=== PATIENT | female | born 1975 | race Caucasian/White ===

== ENCOUNTER → 2016-10-26 | Outpatient (CLI) | payer OTHER ==
--- NOTE | 2016-10-26 21:03 | US ---
EXAMINATION TYPE: US thyroid st tissue head/neck DATE OF EXAM: 10/26/2016 COMPARISON: NONE CLINICAL HISTORY: HYPOTHYROIDISM E03.9. Patient states she feels like there is a lump in her throat GLAND SIZE: Right Lobe: 4.8 x 1.4 x 1.6 cm Overall Parenchyma: heterogenous Left Lobe: 3.9 x 1.4 x 1.5 cm Overall Parenchyma: heterogeneous Isthmus Thickness: 0.2 cm NODULES RIGHT: # of nodules measured on right: 0 LEFT: # of nodules measured on left: 0 ISTHMUS: # of nodules measured in the isthmus: 0 Very heterogenous echotexture bilaterally. Second technologist Tatum Perez came in to look on right side, no solid or cystic nodules visualized bilaterally. Bilateral neck scanned, no evidence of lymp hadenopathy. Thyroid gland is overall normal in size but heterogeneous in echotexture. No definitive solid or cyst ic nodule is identified bilaterally. IMPRESSION: Heterogeneous normal-sized thyroid without discrete nodule.
--- NOTE | 2016-10-27 11:55 | ECHOF ---
Referral Reason:E03.9 HYPOTHROIDISM Z82.49 FAM HX MITROVALVE MEASUREMENTS -------- HEIGHT: 162.6 cm WEIGHT: 49.0 kg BP: 114/57 RVIDd: 2.5 cm (< 3.3) IVSd: 0.9 cm (0.6 - 1.1) LVIDd: 4.3 cm (3.9 - 5.3) LVPWd: 0.9 cm (0.6 - 1.1) IVSs: 1.1 cm LVIDs: 3.1 cm LVPWs: 1.3 cm LAESV Index (A-L): 23.54 ml/m Ao Diam: 2.7 cm (2.0 - 3.7) AV Cusp: 1.9 cm (1.5 - 2.6) LA Diam: 2.6 cm (2.7 - 3.8) MV EXCURSION: 11.453 mm (> 18.000) MV EF SLOPE: 111 mm/s (70 - 150) EPSS: 1.2 cm MV E Hernan: 0.85 m/s MV DecT: 209 ms MV A Hernan: 0.70 m/s MV E/A Ratio: 1.22 RAP: 5.00 mmHg RVSP: 17.74 mmHg FINDINGS -------- Sinus rhythm. This was a technically good study. Overall left ventricular systolic function is normal with, an EF between 55 - 60 %. The right ventricle is normal in size and function. Normal LA size by volume 22+/-6 ml/m2. The right atrium is normal in size. Aortic valve is trileaflet and is mildly thickened. There is no evidence of aortic regurgitation. There is no evidence of aortic stenosis. The mitral valve leaflets are mildly thickened. There is trace mitral regurgitation. Trace tricuspid regurgitation present. There is no evidence of pulmonary hypertension. The right ventricular systolic pressure, as measured by Doppler, is 17.74mmHg. The pulmonic valve is normal. The aortic root size is normal. The inferior vena cava is mildly dilated. The pericardium is normal. There is no pericardial effusion. CONCLUSIONS -------- 1. Sinus rhythm. 2. The right ventricular systolic pressure, as measured by Doppler, is 17.74mmHg. 3. The aortic root size is normal. 4. The inferior vena cava is mildly dilated. 5. There is no pericardial effusion. 6. This was a technically good study. 7. Overall left ventricular systolic function is normal with, an EF between 55 - 60 %. 8. Normal LA size by volume 22+/-6 ml/m2. 9. Aortic valve is trileaflet and is mildly thickened. 10. The mitral valve leaflets are mildly thickened. 11. There is trace mitral regurgitation. 12. Trace tricuspid regurgitation present. 13. There is no evidence of pulmonary hypertension. BANDAGE WRAPPING MACHINE OPERATOR: Arely Montanez RDCS
== END | disposition home or self-care (01) ==
LOC: RADECHMAIN 16:21
PROVIDERS: ATTEND Family Medicine
DX: E03.9 Hypothyroidism, unspecified (principal); I08.3 Combined rheumatic disorders of mitral, aortic and tricuspid valves; Z82.49 Family history of ischemic heart disease and other diseases of the circulatory system; Z88.0 Allergy status to penicillin; Z88.1 Allergy status to other antibiotic agents; Z88.6 Allergy status to analgesic agent
CPT/HCPCS: 76536; 93306

== ENCOUNTER → 2017-11-30 | Outpatient (CLI) | payer MEDICAID, OTHER ==
--- NOTE | 2017-11-30 11:48 | EST ---
EXERCISE STRESS AGE: 42 SEX: F HT: 5'4' WT: 110 PROTOCOL: Jean Stress Test STAGE: II DURATION OF EXERCISE: 8:00 HEART RATE REST: 71 BLOOD PRESSURE REST: 112/80 MAXIMUM HEART RATE ACHIEVED: 153 MAXIMUM BLOOD PRESSURE: 134/63 85% MPHR: 150 100% MPHR: 176 METS: 9.7 INDICATIONS: Chest pain. CLINICAL INFORMATION: Patient was exercised for a total period of 8 minutes. Peak heart rate of 153 was achieved. Maximum blood pressure of 134/63 mmHg was noted.. Resting EKG shows normal sinus rhythm with normal OK interval and QRS duration and normal ST-T waves. No ST- segment depression suggestive of ischemia was noted. Patient did not complain of any chest pain during the test. FINAL IMPRESSION: 1. This exercise test is not suggestive of ischemia. 2. Patient's exercise tolerance is average. 3. No dysrhythmias are noted. MMODL / IJN: [id number] /
== END | disposition home or self-care (01) ==
LOC: RADNMMAIN 10:24
PROVIDERS: ATTEND Family Medicine
DX: R07.89 Other chest pain (principal); Z88.1 Allergy status to other antibiotic agents; Z88.5 Allergy status to narcotic agent; Z88.8 Allergy status to other drugs, medicaments and biological substances
CPT/HCPCS: 93017

== ENCOUNTER 2018-08-14 01:10 | Emergency (ER) | payer MEDICAID ==
[2018-08-14] MEDS ORDERED: SODIUM CHLORIDE 0.9% 1,000 ML IV STA (01:39)
[2018-08-14 01:40] LABS: Glucose,Whole Blood 96 mg/dL (75-99)
[2018-08-14] MEDS ORDERED: MECLIZINE 12.5 MG TAB PO STA (01:41)
--- NOTE | 2018-08-14 01:48 | ED ---
General Adult HPI - General Chief complaint: Dizziness Stated complaint: Dizziness, palpitations Time Seen by Provider: 08/14/18 01:28 Source: patient Mode of arrival: wheelchair Limitations: no limitations - History of Present Illness Initial comments: 42-year-old female patient presents to the emergency department today for evaluation of dizziness, racing heart, chest discomfort, and left jaw pain. Patient states this started around 10 PM while working. Patient states that dizziness worsens whenever she stands up or turns her head to the side. Patient states when she stands up she feels like her heart races. States she is having mild discomfort over her left chest, but states this is common for her. Denies any radiation of the pain through to her back. She denies any blurred or double vision. States that she feels like her tongue is swollen and tingly. She states she did eat dinner as normal tonight. Denies any new medications or substances. States that she does have history of hypothyroid and takes the lowest dose [place] Thyroid. She denies any numbness, tingling, or weakness to the extremities. She denies any nausea or vomiting. She denies any street drug use or use of stimulants. Patient denies any recent rash, fever, chills, shortness breath, abdominal pain, diarrhea, constipation, back pain, hematuria, dysuria, urinary urgency, urinary frequency, headache, visual changes, or any other complaints. - Related Data Previous Rx's Medication Instructions Recorded Meclizine HCl 25 mg PO BID #14 tablet 08/14/18 Allergies Allergy/AdvReac Type Severity Reaction Status Date / Time levofloxacin [From Levaquin] Allergy Swelling Verified 08/14/18 01:21 metronidazole [From Flagyl] Allergy Anaphylaxis Verified 08/14/18 01:21 milk AdvReac Abdominal Verified 08/14/18 01:21 Pain Review of Systems ROS Statement: Those systems with pertinent positive or pertinent negative responses have been documented in the HPI. ROS Other: All systems not noted in ROS Statement are negative. Past Medical History Past Medical History: Thyroid Disorder History of Any Multi-Drug Resistant Organisms: None Reported Past Surgical History: Orthopedic Surgery Additional Past Surgical History / Comment(s): right knee, Past Psychological History: No Psychological Hx Reported Smoking Status: Current every day smoker Past Alcohol Use History: None Reported Past Drug Use History: None Reported General Exam Limitations: no limitations General appearance: alert, in no apparent distress, other (Physical well- developed, well-nourished adult female patient in no acute distress. Vital signs upon presentation are temperature 97.9F, pulse 85, respirations 18, blood pressure 131/80, pulse ox 99% on room air.) Eye exam: Present: normal appearance, PERRL, EOMI. Absent: scleral icterus, conjunctival injection, nystagmus, periorbital swelling ENT exam: Present: normal exam, normal oropharynx, mucous membranes moist Neck exam: Present: normal inspection. Absent: tenderness, meningismus, lymphadenopathy Respiratory exam: Present: normal lung sounds bilaterally. Absent: respiratory distress, wheezes, rales, rhonchi, stridor Cardiovascular Exam: Present: regular rate, normal rhythm, normal heart sounds. Absent: systolic murmur, diastolic murmur, rubs, gallop, clicks GI/Abdominal exam: Present: soft, normal bowel sounds. Absent: distended, tend erness, guarding, rebound, rigid Neurological exam: Present: alert, oriented X3, CN II-XII intact, other (Strength in all 4 extremities is 5/5.) Psychiatric exam: Present: normal affect, normal mood Skin exam: Present: warm, dry, intact, normal color. Absent: rash Course Vital Signs 08/14/18 08/14/18 08/14/18 01:16 02:10 02:20 Temperature 97.9 F Pulse Rate 85 78 78 Respiratory 18 15 16 Rate Blood Pressure 131/80 115/72 108/73 O2 Sat by Pulse 99 Oximetry 08/14/18 08/14/18 08/14/18 02:50 03:10 03:20 Temperature Pulse Rate 74 78 76 Respiratory 15 16 16 Rate Blood Pressure 106/73 109/73 107/66 O2 Sat by Pulse Oximetry EKG Findings - EKG Comments: EKG Findings:: EKG obtained at shows normal sinus rhythm with a ventricular rate of 74, OK interval 142, QRS Duration 102, QT 388, QTC 4:30. No evidence of ST elevation or depression. Medical Decision Making - Medical Decision Making 42-year-old female patient presented to the emergency department today for evaluation of dizziness, racing heart, and tingling in her tongue. Physical examination is unremarkable. She is neurologically intact with no focal deficits. EKG shows normal sinus rhythm. Labs reviewed and shows normal troponin. Normal electrolytes. Patient did have elevated TSH, she does have history of hypothyroid, states she has been taking half of the tablet of her medication. We did administer IV fluids. Gave meclizine. She does have improvement of symptoms in the emergency department. She'll be discharged home at this time to follow-up with her primary care physician. We did discuss possibility of a Holter monitor. She is instructed to discuss dosage of her thyroid medication with her physician. Return parameters were discussed in detail. She verbalizes understanding and agrees with this plan. - Lab Data Result diagrams: 08/14/18 01:37 08/14/18 01:37 Lab Results 08/14/18 08/14/18 08/14/18 Range/Units 01:37 01:37 01:37 WBC 8.6 (3.8-10.6) k/uL RBC 4.23 (3.80-5.40) m/uL Hgb 13.0 (11.4-16.0) gm/dL Hct 38.2 (34.0-46.0) % MCV 90.4 (80.0-100.0) fL MCH 30.8 (25.0-35.0) pg MCHC 34.0 (31.0-37.0) g/dL RDW 13.5 (11.5-15.5) % Plt Count 175 (150-450) k/uL Neutrophils % 57 % Lymphocytes % 34 % Monocytes % 5 % Eosinophils % 1 % Basophils % 1 % Neutrophils # 4.9 (1.3-7.7) k/uL Lymphocytes # 2.9 (1.0-4.8) k/uL Monocytes # 0.5 (0-1.0) k/uL Eosinophils # 0.1 (0-0.7) k/uL Basophils # 0.1 (0-0.2) k/uL PT 10.1 (9.0-12.0) sec INR 0.9 (<1.2) APTT 25.5 (22.0-30.0) sec Sodium 136 L (137-145) mmol/L Potassium 4.0 (3.5-5.1) mmol/L Chloride 105 (98-107) mmol/L Carbon Dioxide 22 (22-30) mmol/L Anion Gap 9 mmol/L BUN 20 H (7-17) mg/dL Creatinine 0.73 (0.52-1.04) mg/dL Est GFR (CKD-EPI)AfAm >90 (>60 ml/min/1.73 sqM) Est GFR (CKD-EPI)NonAf >90 (>60 ml/min/1.73 sqM) Glucose 95 (74-99) mg/dL POC Glucose (mg/dL) (75-99) mg/dL POC Glu Exchange Teller ID Calcium 9.4 (8.4-10.2) mg/dL Magnesium 2.1 (1.6-2.3) mg/dL Total Bilirubin 0.3 (0.2-1.3) mg/dL AST 29 (14-36) U/L ALT 16 (9-52) U/L Alkaline Phosphatase 63 (38-126) U/L Troponin I (0.000-0.034) ng/mL Total Protein 7.1 (6.3-8.2) g/dL Albumin 4.6 (3.5-5.0) g/dL TSH 5.530 H (0.465-4.680) mIU/L Urine Color Urine Appearance (Clear) Urine pH (5.0-8.0) Ur Specific [place] (1.001-1.035) Urine Protein (Negative) Urine Glucose (UA) (Negative) Urine Ketones (Negative) Urine Blood (Negative) Urine Nitrite (Negative) Urine Bilirubin (Negative) Urine Urobilinogen (<2.0) mg/dL Ur Leukocyte Esterase (Negative) Urine RBC (0-5) /hpf Ur Squamous Epith Cells (0-4) /hpf Urine Mucus (None) /hpf Urine Opiates Screen (NotDetected) Ur Oxycodone Screen (NotDetected) Urine Methadone Screen (NotDetected) Ur Propoxyphene Screen (NotDetected) Ur Barbiturates Screen (NotDetected) U Tricyclic Antidepress (NotDetected) Ur Phencyclidine Scrn (NotDetected) Ur Amphetamines Screen (NotDetected) U Methamphetamines Scrn (NotDetected) U Benzodiazepines Scrn (NotDetected) Urine Cocaine Screen (NotDetected) U Marijuana (THC) Screen (NotDetected) 05/29/19 05/29/19 05/29/19 Range/Units 01:37 01:37 01:39 WBC (3.8-10.6) k/uL RBC (3.80-5.40) m/uL Hgb (11.4-16.0) gm/dL Hct (34.0-46.0) % MCV (80.0-100.0) fL MCH (25.0-35.0) pg MCHC (31.0-37.0) g/dL RDW (11.5-15.5) % Plt Count (150-450) k/uL Neutrophils % % Lymphocytes % % Monocytes % % Eosinophils % % Basophils % % Neutrophils # (1.3-7.7) k/uL Lymphocytes # (1.0-4.8) k/uL Monocytes # (0-1.0) k/uL Eosinophils # (0-0.7) k/uL Basophils # (0-0.2) k/uL PT (9.0-12.0) sec INR (<1.2) APTT (22.0-30.0) sec Sodium (137-145) mmol/L Potassium (3.5-5.1) mmol/L Chloride (98-107) mmol/L Carbon Dioxide (22-30) mmol/L Anion Gap mmol/L BUN (7-17) mg/dL Creatinine (0.52-1.04) mg/dL Est GFR (CKD-EPI)AfAm (>60 ml/min/1.73 sqM) Est GFR (CKD-EPI)NonAf (>60 ml/min/1.73 sqM) Glucose (74-99) mg/dL POC Glucose (mg/dL) 96 (75-99) mg/dL POC Glu Exchange Teller ID Brown Christine Calcium (8.4-10.2) mg/dL Magnesium (1.6-2.3) mg/dL Total Bilirubin (0.2-1.3) mg/dL AST (14-36) U/L ALT (9-52) U/L Alkaline Phosphatase (38-126) U/L Troponin I <0.012 (0.000-0.034) ng/mL Total Protein (6.3-8.2) g/dL Albumin (3.5-5.0) g/dL TSH (0.465-4.680) mIU/L Urine Color Light Yellow Urine Appearance Clear (Clear) Urine pH 5.0 (5.0-8.0) Ur Specific [place] 1.006 (1.001-1.035) Urine Protein Negative (Negative) Urine Glucose (UA) Negative (Negative) Urine Ketones Negative (Negative) Urine Blood Trace H (Negative) Urine Nitrite Negative (Negative) Urine Bilirubin Negative (Negative) Urine Urobilinogen <2.0 (<2.0) mg/dL Ur Leukocyte Esterase Negative (Negative) Urine RBC 1 (0-5) /hpf Ur Squamous Epith Cells <1 (0-4) /hpf Urine Mucus Rare H (None) /hpf Urine Opiates Screen Not Detected (NotDetected) Ur Oxycodone Screen Not Detected (NotDetected) Urine Methadone Screen Not Detected (NotDetected) Ur Propoxyphene Screen Not Detected (NotDetected) Ur Barbiturates Screen Not Detected (NotDetected) U Tricyclic Antidepress Not Detected (NotDetected) Ur Phencyclidine Scrn Not Detected (NotDetected) Ur Amphetamines Screen Not Detected (NotDetected) U Methamphetamines Scrn Not Detected (NotDetected) U Benzodiazepines Scrn Not Detected (NotDetected) Urine Cocaine Screen Not Detected (NotDetected) U Marijuana (THC) Screen Not Detected (NotDetected) - Radiology Data Radiology results: report reviewed, image reviewed Two-view x-ray of the chest is obtained. Report was reviewed in its entirety. Impression by Dr. Wagoner shows unremarkable chest x-rays. Disposition Clinical Impression: Dizziness, Palpitations Disposition: HOME SELF-CARE Condition: Good Instructions (If sedation given, give patient instructions): Heart Palpitations (ED), Dizziness (ED) Additional Instructions: Increase fluids. Rest. Follow-up with your primary care physician for recheck in 1-2 days. Return to the emergency department immediately for any new, worsening, or concerning symptoms. Prescriptions: Meclizine HCl 25 mg PO BID #14 tablet Is patient prescribed a controlled substance at d/c from ED?: No Referrals: Juan A Bergeron MD [Primary Care Provider] - 1-2 days Time of Disposition: 04:01
--- NOTE | 2018-08-14 02:03 | XR ---
EXAM: XR Chest, 2 Views CLINICAL HISTORY: ITS.REASON XR Reason: dysrhythmia TECHNIQUE: Frontal and lateral views of the chest. COMPARISON: No relevant prior studies available. FINDINGS: Lungs: Unremarkable. No consolidation. Pleural space: Unremarkable. No pneumothorax. Heart: Unremarkable. No cardiomegaly. Mediastinum: Unremarkable. Bones/joints: Unremarkable. IMPRESSION: Unremarkable chest x-rays.
[2018-08-14 02:36] LABS: Appearance,Urine Clear (Clear); Bilirubin,Urine Negative (Negative); Blood,Urine Trace (Negative); Color,Urine Light Yellow; Glucose,Urine (UA) Negative (Negative); Ketones,Urine Negative (Negative); Leukocyte Esterase,Urine Negative (Negative); Mucus,Urine Rare /hpf; Nitrite,Urine Negative (Negative); Protein,Urine Negative (Negative); RBC,Urine 1 /hpf (0-5); Specific Gravity,Urine 1.006 (1.001-1.035); Squamous Epithelial Cell,Urine <1 /hpf (0-4); Urobilinogen,Urine <2.0 mg/dL (<2.0)
[2018-08-14 02:37] LABS: Basophils # (A) 0.1 k/uL (0-0.2); Basophils % (A) 1 %; Eosinophils # (A) 0.1 k/uL (0-0.7); Eosinophils % (A) 1 %; HCT 38.2 % (34.0-46.0); Lymphocytes # (A) 2.9 k/uL (1.0-4.8); Lymphocytes % (A) 34 %; MCH 30.8 pg (25.0-35.0); MCV 90.4 fL (80.0-100.0); Mean Platelet Volume 8.1; Monocytes # (A) 0.5 k/uL (0-1.0); Monocytes % (A) 5 %; Neutrophils # (A) 4.9 k/uL (1.3-7.7); Neutrophils % (A) 57 %; Platelet Count 175 k/uL (150-450); RBC 4.23 m/uL (3.80-5.40); RDW 13.5 % (11.5-15.5); WBC 8.6 k/uL (3.8-10.6)
[2018-08-14 02:38] LABS: Amphetamine Screen,Urine Not Detected (NotDetected); Barbiturate Screen,Urine Not Detected (NotDetected); Benzodiazepines Screen,Urine Not Detected (NotDetected); Cocaine Screen,Urine Not Detected (NotDetected); Methadone Screen, Urine Not Detected (NotDetected); Opiate Screen,Urine Not Detected (NotDetected); Oxycodone Screen, Urine Not Detected (NotDetected); Phencyclidine Screen,Urine Not Detected (NotDetected); Tricyclic Antidepressant,Urine Not Detected (NotDetected); Urn Cannabinoid Scrn Not Detected (NotDetected)
[2018-08-14 02:41] LABS: INR 0.9 (<1.2); Partial Thromboplastin Time 25.5 sec (22.0-30.0); Prothrombin Time 10.1 sec (9.0-12.0)
[2018-08-14 02:53] LABS: ALT 16 U/L (9-52); AST 29 U/L (14-36); Albumin 4.6 g/dL (3.5-5.0); Alkaline Phosphatase 63 U/L (38-126); Anion Gap 9 mmol/L; Blood Urea Nitrogen 20 mg/dL (7-17); Calcium 9.4 mg/dL (8.4-10.2); Carbon Dioxide 22 mmol/L (22-30); Chloride 105 mmol/L (98-107); Glucose 95 mg/dL (74-99); Magnesium 2.1 mg/dL (1.6-2.3); Sodium 136 mmol/L (137-145); Total Bilirubin 0.3 mg/dL (0.2-1.3); Total Protein 7.1 g/dL (6.3-8.2)
[2018-08-14 03:35] VITALS: BP 107/66; PULSE 76; RESP 16
[2018-08-14 04:37] VITALS: TEMP 97.8
[2018-08-14 05:25] LABS: T4, Free (Free Thyroxine) 0.95 ng/dL (0.78-2.19)
== END 2018-08-14 04:37 | disposition home or self-care (01) ==
LOC: EC 01:10
DX: R42 Dizziness and giddiness (principal); R00.2 Palpitations; R94.6 Abnormal results of thyroid function studies; R07.89 Other chest pain; R68.84 Jaw pain; K14.8 Other diseases of tongue; E03.9 Hypothyroidism, unspecified; F17.200 Nicotine dependence, unspecified, uncomplicated; Z88.1 Allergy status to other antibiotic agents; Z91.011 Allergy to milk products; Z79.890 Hormone replacement therapy
CPT/HCPCS: 36415; 71046; 80053; 80306; 81001; 83735; 84439; 84443; 84484; 85025; 85610; 85730; 93005; 96360; 99284

== ENCOUNTER → 2018-08-26 | Outpatient (CLI) | payer MEDICAID ==
--- NOTE | 2018-08-26 19:10 | US ---
EXAMINATION TYPE: US carotid duplex BILAT DATE OF EXAM: 08/26/2018 COMPARISON: NONE CLINICAL HISTORY: R42 DIZZINESS,VERTIGO. EXAM MEASUREMENTS: RIGHT: Peak Systolic Velocity (PSV) cm/sec ----- Right CCA: 109.9 ----- Right ICA: 94.0 ----- Right ECA: 69.4 ICA/CCA ratio: 0.9 RIGHT: End Diastole cm/sec ----- Right CCA: 34.3 ----- Right ICA: 43.1 ----- Right ECA: 21.5 LEFT: Peak Systolic Velocity (PSV) cm/sec ----- Left CCA: 91.9 ----- Left ICA: 86.4 ----- Left ECA: 59.8 ICA/CCA ratio: 0.9 LEFT: End Diastole cm/sec ----- Left CCA: 35.8 ----- Left ICA: 41.3 ----- Left ECA: 18.8 VERTEBRALS (direction of flow): Right Vertebral: Antegrade Left Vertebral: Antegrade Rhythm: Normal No evidence of atherosclerotic changes. No significant velocity elevations. IMPRESSION: No sonographically evident hemodynamically significant stenosis within either visualized carotid arterial system. Criteria for Assigning % of Stenosis / Diameter reduction (Estimation based on the indirect measurements of the internal carotid artery velocities (ICA PSV). 1. Normal (no stenosis)=ICA PSV < 125 cm/s: ratio < 2.0: ICA EDV<40 cm/s. 2. Less than 50% stenosis=ICA PSV < 125 cm/s: ratio < 2.0: ICA EDV<40 cm/s. 3. 50 to 69% stenosis=ICA PSV of 125 to 230 cm/s: ration 2.0 ? 4.0: ICA EDV 40-100 cm/s. 4. Greater than 70% stenosis to near occlusion= ICA PSV > 230 cm/s: ratio > 4.0: ICA EDV > 100 cm/s. 5. Near occlusion= ICA PSV velocities may be low or undetectable: variable ratio and ICA EDV. 6. Total occlusion=unable to detect flow.
--- NOTE | 2018-08-30 19:38 | EM ---
EVENT MONITOR AGE:: 42 SEX:: Female. Patient was monitored for 24 hours. The baseline rhythm is sinus mechanism with normal conduction, average rate 87 beats per minute, minimum 57, maximum 163 beats per minute. Ventricular ectopic activity was present in the form of rare single PVCs. Supraventricular ectopic activity was present in the form of rare single PACs. Symptoms of head pain, dizziness and lightheadedness correlated with sinus mechanism and episodes of sinus tachycardia. IMPRESSION: 1. Sinus mechanism as baseline rhythm. 2. Rare ventricular ectopic activity. 3. Rare supraventricular ectopic activity. 4. Symptoms did not correlate with any dysrhythmia. MMODL / IJN: [id number] /
== END | disposition home or self-care (01) ==
LOC: RADECHMAIN 11:48
PROVIDERS: ATTEND Family Medicine
DX: R42 Dizziness and giddiness (principal); Z88.1 Allergy status to other antibiotic agents; Z88.5 Allergy status to narcotic agent; Z88.8 Allergy status to other drugs, medicaments and biological substances
CPT/HCPCS: 93225; 93226; 93880

== ENCOUNTER → 2018-08-27 | Outpatient (CLI) | payer MEDICAID ==
--- NOTE | 2018-08-27 10:36 | MR ---
EXAMINATION TYPE: MR brain wo/w con DATE OF EXAM: 08/27/2018 COMPARISON: None HISTORY: Dizziness, headache TECHNIQUE: Multiplanar, multisequence images of the brain and brainstem is performed without and with IV contras t, utilizing 5 mL intravenous Gadavist . FINDINGS: Diffusion weighted images demonstrate no evidence of a recent infarct or other diffusion ab normality. There is no extra-axial fluid collection or significant white matter signal abnormality, punctate focus in the left frontal deep white matter on axial image 22, also in image #20 focus measu ring 3 mm of questionable clinical significance. The ventricular system and cisternal spaces are nor mal in size and appearance. The brain volume is age appropriate. Midline structures demonstrate normal morphology. The craniocervical junction appears within normal limits. Post contrast images demonstrate no abnormal enhancement. The dural venous sinuses appear pa tent. The visualized sinuses are clear and the globes are intact. IMPRESSION: Nonspecific white matter demyelination as described of questionable clinical significance . Findings could be related to hypertension, migraine headaches, vasculitis, Lyme disease, small vess el ischemic sequela, multiple sclerosis felt to be less likely, follow-up as indicated.
== END | disposition home or self-care (01) ==
LOC: RADMRIMAIN 09:07
PROVIDERS: ATTEND Family Medicine
DX: R51 Headache (principal); R42 Dizziness and giddiness
CPT/HCPCS: 70553; A9585

== ENCOUNTER → 2018-09-11 | Outpatient (CLI) | payer MEDICAID ==
--- NOTE | 2018-09-12 07:15 | US ---
EXAMINATION TYPE: US venous doppler duplex LE BI For venous insufficiency, low blood pressure. DATE OF EXAM: 09/11/2018 7:07 PM COMPARISON: LOWER EXTREMITY VENOUS INSUFFICIENCY SIDE PERFORMED: Bilateral 1) Color flow is present and patency is documented in the following vessels. No DVT or SVT is noted . EIV Common Femoral Vein Deep Femoral Vein Femoral Vein Popliteal Vein Proximal Calf Veins Greater Saph Vein Upper Small Saph Vein 2) There is venous reflux noted at the following venous levels: No venous reflux visualized in bila teral legs. No evidence of DVT bilateral legs. IMPRESSION: No sonographic evidence of deep venous thrombosis within either lower extremity nor venou s reflux at the time of examination.
== END | disposition home or self-care (01) ==
LOC: RADUSMAIN 17:50
PROVIDERS: ATTEND Internal Medicine Cardiovascular Disease
DX: I87.2 Venous insufficiency (chronic) (peripheral) (principal)
CPT/HCPCS: 93970

== ENCOUNTER → 2018-10-18 | Outpatient (CLI) | payer MEDICAID | END | disposition home or self-care (01) | LOC: RADUSWWP 10:18 | PROVIDERS: ATTEND Internal Medicine Cardiovascular Disease | DX: I73.9 Peripheral vascular disease, unspecified (principal) | CPT/HCPCS: 93922 ==

== ENCOUNTER → 2019-10-22 | Outpatient (CLI) | payer MEDICAID ==
--- NOTE | 2019-10-22 12:57 | EST ---
EXERCISE STRESS AGE: 43 SEX: F HT: 5'4" WT: 110 lbs. PROTOCOL: STAGE: 4 DURATION OF EXERCISE: 12:00 HEART RATE REST: 66 BLOOD PRESSURE REST: 119/85 MAXIMUM HEART RATE ACHIEVED: 176 MAXIMUM BLOOD PRESSURE: 152/81 85% MPHR: 149 100% MPHR: 175 METS: 12.3 INDICATIONS: A 43-year-old female referred for a stress test. Baseline heart rate 66 beats per minute. Baseline blood pressure 119/85 mmHg. Baseline 12-lead ECG shows sinus rhythm with a [address] elevation inferolaterally. Patient exercised on a Jean protocol for 12 minutes, achieving a peak heart rate of 176 beats per minute. Normal blood pressure response to exercise. There was no ECG evidence for ischemia. No arrhythmias were noted. No symptoms were noted. IMPRESSION: 1. Excellent exercise capacity on a Jean protocol. 2. No ECG evidence for ischemia or arrhythmia. 3. Normal heart rate and blood pressure response to exercise. MMODL / IJN: [id number] /
--- NOTE | 2019-10-22 16:22 | NM ---
EXAMINATION TYPE: NM stress cardiolite complete DATE OF EXAM: 10/22/2019 COMPARISON: NONE HISTORY: Tachycardia, chest pain TECHNIQUE: After the intravenous administration of 9.1 mCi Tc 99m Sestamibi - Rest images obtained 3 0 minutes post injection. The patient exercised using a JANNETTE protocol and 1 minute prior to peak e xercise was injected with 23.7 mCi Tc 99m Sestamibi - Stress images obtained 30 minutes post injectio n. FINDINGS: There is some diminished radiotracer on the inferior wall near the cardiac apex on resting images whi ch is more normal appearance on the stress images. Reversible perfusion defects are not identified. N o fixed defects are evident. Gated wall motion is normal. Ejection fraction of 69% is normal. IMPRESSION: Normal stress myocardial study.
== END | disposition home or self-care (01) ==
LOC: RADNMMAIN 10-21 08:17
PROVIDERS: ATTEND Internal Medicine Cardiovascular Disease
DX: R07.9 Chest pain, unspecified (principal); R00.0 Tachycardia, unspecified
CPT/HCPCS: 93017; 78452; A9500

== ENCOUNTER → 2019-10-30 | Outpatient (CLI) | payer MEDICAID ==
--- NOTE | 2019-10-30 12:00 | ECHOF ---
Referral Reason:R07.9 chest pain MEASUREMENTS -------- HEIGHT: 162.6 cm WEIGHT: 49.9 kg BP: RVIDd: 2.8 cm (< 3.3) IVSd: 0.9 cm (0.6 - 1.1) LVIDd: 4.0 cm (3.9 - 5.3) LVPWd: 0.8 cm (0.6 - 1.1) IVSs: 1.2 cm LVIDs: 3.0 cm LVPWs: 1.3 cm LA Diam: 3.0 cm (2.7 - 3.8) LAESV Index (A-L): 18.04 ml/m Ao Diam: 2.9 cm (2.0 - 3.7) AV Cusp: 1.9 cm (1.5 - 2.6) MV EXCURSION: 17.419 mm (> 18.000) MV EF SLOPE: 110 mm/s (70 - 150) EPSS: 0.5 cm MV E Hernan: 0.97 m/s MV DecT: 168 ms MV A Hernan: 0.58 m/s MV E/A Ratio: 1.66 RAP: 5.00 mmHg RVSP: 27.98 mmHg FINDINGS -------- Sinus rhythm. This was a technically good study. The left ventricular size is normal. Left ventricular wall thickness is normal. Overall left vent ricular systolic function is normal with, an EF between 60 - 65 %. The right ventricle is normal in size. Normal LA size by volume 22+/-6 ml/m2. The right atrium is normal in size. Interatrial and interventricular septum intact. The aortic valve is trileaflet, and appears structurally normal. No aortic stenosis or regurgitation. There is trace to mild mitral regurgitation. Mild tricuspid regurgitation present. Right ventricular systolic pressure is normal at < 35 mmHg. Trace/mild (physiologic) pulmonic regurgitation. The aortic root size is normal. Normal inferior vena cava with normal inspiratory collapse consistent with estimated right atrial pre ssure of 5 mmHg. There is no pericardial effusion. CONCLUSIONS -------- 1. The left ventricular size is normal. 2. Left ventricular wall thickness is normal. 3. Overall left ventricular systolic function is normal with, an EF between 60 - 65 %. 4. The right ventricle is normal in size. 5. There is trace to mild mitral regurgitation. 6. Mild tricuspid regurgitation present. 7. Trace/mild (physiologic) pulmonic regurgitation. 8. There is no pericardial effusion. [employer]: Montserrat Zarate RDCS
== END | disposition home or self-care (01) ==
LOC: RADECHMAIN 08:18
PROVIDERS: ATTEND Internal Medicine Cardiovascular Disease
DX: I07.1 Rheumatic tricuspid insufficiency (principal); I49.8 Other specified cardiac arrhythmias
CPT/HCPCS: 93306

== ENCOUNTER → 2021-03-23 | Outpatient (CLI) | payer MEDICAID, OTHER | END | disposition home or self-care (01) | LOC: LABWHC1 05:42 | PROVIDERS: ATTEND Emergency Medicine | DX: U07.1 COVID-19 (principal) | CPT/HCPCS: 87635 ==